=== PATIENT | female | born 1945 | race Caucasian/White ===

== ENCOUNTER 2024-06-08 05:20 | Inpatient (IN) ==
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
[2024-06-08 06:10] LABS: BUN Creatinine Ratio 32.9 (10-20); Calcium 9.6 mg/dl (8.6-10.3); Creatinine Clr Calc Pharmacy 43.3 ml/min; Potassium 3.6 mmol/L (3.5-5.1)
[2024-06-08] MEDS: SODIUM CHLORIDE 0.9% 1,000 ML IV SCH (06:42)
[2024-06-08] MEDS: ALBUTEROL 0.083% NEBU SOLN 3 ML VIAL NEB STA (06:54)
[2024-06-08] MEDS ORDERED: MIDAZOLAM HCL 1 MG/ML 2ML VIAL ONE (06:59)
[2024-06-08] MEDS ORDERED: PROPOFOL IV EMULSION 10 MG/ML 20 ML VIAL IV ONE ×4 (06:59→09:32)
[2024-06-08] MEDS ORDERED: LIDOCAINE 2% 20 MG/ML 5 ML SYR IV ONE (06:59)
[2024-06-08] MEDS ORDERED: fentaNYL citrate PF 100 MCG/2 ML VIAL ONE (06:59)
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
--- NOTE | 2024-06-08 07:29 | History & Physical Bridge Note ---
Date of Service June 08, 2024 History & Physical Bridge Note I have examined the patient, reviewed the History & Physical and in the interval since the performance of the History & Physical I have noted the following changes of clinical significance: no changes noted
[2024-06-08] MEDS: ceFAZolin 2000MG 2,000 MG/15 ML SYR IV SCH ×2 (07:45→16:33)
[2024-06-08] MEDS ORDERED: KETAMINE HCL 10MG/ML SYR ONE (08:17)
[2024-06-08] MEDS ORDERED: HEPARIN SOD (PORCINE) 1000 UNIT/ML ONE (08:34)
[2024-06-08] MEDS: BUPIVACAINE/EPINEPHRINE 0.5% MPF 1:200,000 30 ML VIAL ONE (08:35)
[2024-06-08] MEDS ORDERED: PHENYLEPHRINE 100MCG/ML 5ML SYR ONE (08:50)
[2024-06-08] MEDS ORDERED: ONDANSETRON INJ 2 MG/ML 2 ML VIAL ONE (09:46)
[2024-06-08] MEDS ORDERED: VISIPAQUE IV PRN (09:50)
--- NOTE | 2024-06-08 09:53 | Post Operative Brief Note ---
Immediate Post Op Note Date of Surgery June 08, 2024 Pre & Post Diagnosis Operation Date: 06/08/24 07:30 Pre-Op Diagnosis: Abdominal aortic aneurysm Post-Op Diagnosis: Abdominal aortic aneurysm I identified the patient and participated in the time-out.: Yes Procedure Operation Date: 06/08/24 07:30 Actual Procedures p Percutaneous Endovascular Repair of an Abdominal Aortic Aneurysm, left common iliac extension, right common iliac extension, aortic extension, mechanical closure bilateral femoral arteries(Bilateral) - Juan Michaels MD Surgeon Juan Michaels MD Senior Safety Support Manager DO Smith Estimated Blood Loss 50 Findings Consistent with Post-Op Diagnosis On completion angiogram no evidence of Type 1a/b, type 2, or type 3 endo leak. Groins closed with with manta closure device. No obvious hematoma. Drains Morin Catheter Anesthesia Type MAC Complications none None apparent. Disposition Accompanied Patient To Recovery: No Disposition: Recovery Room
--- NOTE | 2024-06-08 09:59 | Electrocardiogram Report ---
Test Reason : Blood Pressure : */* mmHG Vent. Rate : 74 BPM Atrial Rate : 74 BPM P-R Int : 144 ms QRS Dur : 74 ms QT Int : 382 ms P-R-T Axes : 53 70 66 degrees QTcB Int : 424 ms Poor data quality, interpretation may be adversely affected Normal sinus rhythm Normal ECG No previous ECGs available Confirmed by Alfredo Cordova ([id number]) on 06/08/2024 9:58:39 AM Referred By: Juan Michaels Confirmed By: Alfredo Cordova
[2024-06-08] MEDS ORDERED: fentaNYL citrate PF 100 MCG/2 ML VIAL IV PRN (10:00)
[2024-06-08] MEDS ORDERED: FLUMAZENIL 0.1 MG/1 ML 10 ML VIAL IV PRN (10:00)
[2024-06-08] MEDS ORDERED: LABETALOL HCL IV 5 MG/ML 20ML IV PRN (10:00)
[2024-06-08] MEDS ORDERED: ATROPINE SULFATE 0.1 MG/ML 10ML SYR IV PRN ×2 (10:00→12:08)
[2024-06-08] MEDS ORDERED: NALOXONE HCL 0.4 MG/1 ML VIAL/CARP IV PRN (10:00)
[2024-06-08] MEDS ORDERED: ePHEDrine sulfate 50 MG/ML AMP IV PRN ×2 (10:00→12:08)
--- NOTE | 2024-06-08 10:22 | Operative Report ---
Post Operative Report Pre & Post Diagnosis Operation Date: 06/08/24 07:30 Pre-Op Diagnosis: Abdominal aortic aneurysm Post-Op Diagnosis: Abdominal aortic aneurysm I identified the patient and participated in the time-out.: Yes Procedure Operation Date: 06/08/24 07:30 Actual Procedures p Percutaneous Endovascular Repair of an Abdominal Aortic Aneurysm, left common iliac extension, right common iliac extension, aortic extension, mechanical closure bilateral femoral arteries(Bilateral) - Juan Michaels MD Main body 26x14.5x12 Contra limb 12x10 Ipsilateral limb 12x7 Aortic cuff 26x4.5 Aortic cuff 26x3.3 Surgeon Xenia Senior Data Analyst Terry Estimated Blood Loss 50 Findings Consistent with Post-Op Diagnosis On comletion angiogram no evidence of type 1a/b, 2, or 3 endoleak. Ultimately required two extension pieces for proximal seal. Groins closed with manta closure devices. No obvious hematoma at conclusion of case. Fluids Per anesthesia report Specimens No specimen Drains No drain Anesthesia Type MAC Complications None apparent at conclusion of the case. Indications Known asymptomatic infrarenal AAA. Description of Procedure Fluorotime: 16.6min Rad: 203 mGy Contrast 154 mL PROCEDURE: With the patient supine position under conscious sedation, the abdomen and lower extremities were prepped and draped in a sterile fashion. Bilateral percutaneous common femoral access was obtained under ultrasound guidance. The patient was then heparinized. 8-Zimbabwean sheaths were then placed bilaterally. A stiff megha wire was then placed up the right and left femoral artery. The left 8 fr sheath was exchanged for a 12 fr sheath. The right sheath was squentially dilated with a 12 fr dilator, and then upsized to 18 fr sheath. The main body device (26mm x14.5mm x 12 cm) was inserted via the R groin. Utilizing the L groin a marking pigtail catheter was inserted and an aortogram was performed. We marked the renal arteries aortic bifurcation and bifurcation, common iliac arteries. We then preceded placement of the main trunk and deployed the trunk body just below the take off renal arteries. Once the main trunk was deployed the contralateral gate was cannulated using the pigtail catheter and stiff angle glide. The angled glide catheter was exchanged for a megha wire and a sheath shot was obtained. The take off of the hypogastric was marked. An iliac limb down in to the right common iliac artery was to just above the takeoff of the hypogastric was placed (12mm x 10cm) . Next the remainder of the main body was deployed and a sheath shot on the ipsilateral limb was obtained. The take off of the ipsilateral hypogastric was marked, and an iliac limb was placed (12mm x 7cm). Following completion of the above all arteries were ballooned appropriately. Following ballooning of the proximal, the main body was noted to have slipped and a type1A endoleak was observed. Subsequently, two aortic cuffs were placed, a 26mm x4.5cm and 26mm x 3.3cm. A completion angiogram was done and showed excellent seal without evidence of type 1A/B, 2, or 3 endoleaks. Following completion of the above, manta closure devices were utilized for percutaneous closure. Manual pressure was held on the right groin for 20 minutes. Steristrips were applied to the percutaneous access sites. Sponge and needle counts were reported as correct. The patient tolerated the procedure well the patient was taken to the recovery room in satisfactory condition. Dr. Michaels was present for the entire procedure. I attest to the content of the Intraoperative Record and any orders documented therein. Any exceptions are noted below.
[2024-06-08 10:29] LABS: Hematocrit (blood only) 33.4 % (37.0-47.0); Hemoglobin 10.6 g/dl (12.0-16.0)
[2024-06-08] MEDS: ONDANSETRON INJ 2 MG/ML 2 ML VIAL IV PRN ×2 (10:43→12:48)
[2024-06-08] MEDS: PROMETHAZINE HCL 6.25 MG in SODIUM CHLORIDE 0.9% 50 ML IV PRN (10:50)
[2024-06-08] MEDS: PROMETHAZINE HCL INJ 25 MG/ML 1 ML VIAL ONE ×2 (11:07→11:08)
[2024-06-08] MEDS: SODIUM CHLORIDE 0.9% 50 ML BAG ONE ×2 (11:11→11:12)
[2024-06-08] MEDS: PROMETHAZINE 6.25 MG/50.25 ML BAG IV STA (11:15)
[2024-06-08] MEDS: DROPERIDOL 5 MG/2 ML VIAL IV STA ×2 (11:20→11:35)
[2024-06-08] MEDS: DROPERIDOL 5 MG/2 ML VIAL ONE (11:39)
--- NOTE | 2024-06-08 12:08 | Anesthesiology Progress Note ---
Date of Service June 08, 2024 Anesthesia Post Procedure Vital Signs Vital Signs: Temp Pulse Pulse Resp BP BP Pulse Ox 06/08/24 11:55 36.5 C 79 16 154/55 H 146/70 H 94 06/08/24 11:45 78 18 152/54 H 148/99 H 93 06/08/24 11:35 79 17 155/57 H 145/76 H 92 06/08/24 11:25 80 20 153/57 H 147/68 H 95 06/08/24 11:15 94 H 22 150/56 H 112/75 94 06/08/24 11:05 94 H 18 161/62 H 149/68 H 95 06/08/24 10:55 90 20 163/78 H 95 06/08/24 10:45 87 20 165/84 H 154/48 H 96 06/08/24 10:35 77 16 129/52 L 114/63 95 06/08/24 10:25 79 20 142/53 H 128/67 98 06/08/24 10:15 77 15 149/56 H 129/68 97 06/08/24 10:08 36.0 C L 86 16 148/72 H 99 06/08/24 06:54 68 17 98 06/08/24 05:57 36.8 C 77 18 123/71 134/81 97 O2 Del Method O2 Flow Rate 06/08/24 11:55 Room Air 06/08/24 11:45 Room Air 06/08/24 11:35 Room Air 06/08/24 11:25 Room Air 06/08/24 11:15 Room Air 06/08/24 11:05 Room Air 06/08/24 10:55 Room Air 06/08/24 10:45 Room Air 06/08/24 10:35 Room Air 06/08/24 10:25 Room Air 06/08/24 10:15 Oxymask 7 06/08/24 10:08 Oxymask 7 06/08/24 06:54 Room Air 06/08/24 05:57 Room Air Transfer of Care Handoff Completed per policy Notes Mental Status: alert / awake / arousable Patient Amnestic to Procedure: Yes Nausea / Vomiting: adequately controlled Pain: adequately controlled Airway Patency, RR, SpO2: stable & adequate BP & HR: stable & adequate Hydration State: stable & adequate Anesthetic Complications: no major complications apparent
[2024-06-08] MEDS ORDERED: oxyCODONE/ACETAMINOPHEN 5mg/325mg TAB PO PRN (12:28)
[2024-06-08] MEDS: ALPRAZolam 0.5 MG TABLET PO STA (13:12)
[2024-06-08] MEDS: LACTATED RINGER'S 1,000 ML IV SCH (13:14)
[2024-06-08] MEDS: LIDOCAINE 1% LOCAL 20 ML VIAL ONE (13:52)
[2024-06-08] MEDS: LIDOCAINE 1% LOCAL 20 ML VIAL INJ ONE (13:52)
[2024-06-08] MEDS: ARISTA ABSORBABLE HEMOSTAT 3GM TOP ONE (13:52)
[2024-06-08] MEDS ORDERED: ACETAMINOPHEN 1,000 MG/100 ML VIAL IV PRN (14:21)
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
[2024-06-08] MEDS: LORazepam 2 MG/1 ML VIAL IV PRN (14:55)
[2024-06-08] MEDS: HYDROmorphone INJ 0.5 MG/0.5 ML SYR IV PRN (14:55)
[2024-06-08] MEDS: PROMETHAZINE 6.25 MG/50.25 ML BAG IV ONE (14:55)
--- NOTE | 2024-06-08 15:54 | XRay Report ---
XR chest 1V portable CLINICAL HISTORY: Chest pain. Evaluate for pneumonia. COMPARISON STUDY: No previous studies for comparison. FINDINGS: Lung volumes are normal. No pneumothorax or pleural effusion is present. There is no eviden ce for pulmonary edema. Cardiomediastinal silhouette is normal. A circumscribed 1.1 cm nodular densit y projects over the right midlung. Mild interstitial thickening within the lungs is present. This is greatest within the left lower lobe. IMPRESSION: 1. No consolidation to suggest acute pneumonia. 2. Mild interstitial thickening. This is nonspecific but probably chronic a chronic infectious proce ss is within the differential. 3. Circumscribed 1.1 cm right midlung nodular density. This could be assessed with a nonemergent ches t CT. ACT 112: Positive. There are findings on this exam that require communication between the performing entity and the patient following Patient Test Result Information Act ([place] Act 112) guidelines. Electronically signed by: Bandar Spears M.D. 06/08/2024 3:51 PM
[2024-06-08] MEDS: [UNRECOGNIZED DRUG - REMARK] SCH (16:33)
[2024-06-08] MEDS ORDERED: ALPRAZolam 0.5 MG TABLET PO SCH (21:00)
[2024-06-08] MEDS: SERTRALINE HCL 50 MG TABLET PO SCH (21:00)
[2024-06-09 04:25] LABS: Hematocrit (blood only) 31.2 % (37.0-47.0); Hemoglobin 10.1 g/dl (12.0-16.0); Immature Granulocytes # (auto) 0.03 K/uL (0.01-0.20); Immature Granulocytes % (auto) 0.3 %; Lymphocytes # (auto) 0.47 K/uL (1.20-3.40); Lymphocytes % (auto) 4.4 %; Mean Corpuscular Hgb Conc 32.4 g/dL (32.0-36.0); Mean Corpuscular Volume 86.4 fL (80.0-100.0); Mean Platelet Volume 10.9 fL (9.4-12.4); Monocytes % (auto) 5.6 %; Neutrophils % (auto) 89.7 %; Platelet Count 119 K/uL (130-400); RDW Coefficient of Variation 14.1 % (11.5-14.5); RDW Standard Deviation 44.2 fL (36.4-46.3); Red Blood Count 3.61 M/uL (4.20-5.40)
[2024-06-09 04:37] LABS: BUN Creatinine Ratio 18.3 (10-20); Calcium 8.5 mg/dl (8.6-10.3); Creatinine Clr Calc Pharmacy 46.4 ml/min; Potassium 3.5 mmol/L (3.5-5.1)
[2024-06-09] MEDS ORDERED: ceFAZolin 2000MG 2,000 MG/15 ML SYR IV SCH (06:00)
[2024-06-09 10:19] VITALS: O2SAT 95
[2024-06-09 10:38] VITALS: TEMP 99.1
[2024-06-09 11:41] VITALS: BP 151/65; PULSE 89; RESP 13
--- NOTE | 2024-06-09 12:41 | Surgery Progress Note ---
Date of Service June 09, 2024 Assessment & Plan (1) H/O endovascular stent graft for abdominal aortic aneurysm: Plan: Patient POD 1 of a PEVAR. Uneventful post op course. Will d/c today. Admission and Anticipated Discharge Date Admission Date: June 08, 2024 Subjective Patient without complaints. Up in chair. Physical Exam Constitutional: WD/WN, vitals as above Respiratory: normal respiratory effort; no respiratory distress Cardiovascular: Rate/Rhythm: regular rate and regular rhythm Vessels: femoral pulses present Extremities: normal capillary refill Gastrointestinal (Abdomen): Inspection/Auscultation: abdomen normal to inspection Percussion/Palpation: abdomen soft; abdomen nontender Skin: + incision (puncture sites without hemat omas) Neurologic: CN's II-XI intact bilaterally and moves all extremities Psychiatric: A+Ox3, euthymic affect Results & Data Vital Signs (Past 12 Hours) Vital Signs Temp Pulse Pulse Resp BP BP BP 06/09/24 11:36 89 13 06/09/24 11:06 80 17 06/09/24 11:00 151/65 H 06/09/24 11:00 151/65 H 06/09/24 10:54 78 22 06/09/24 10:38 37.3 C 06/09/24 10:34 37.3 C 87 24 158/57 H 154/84 H 06/09/24 10:09 80 24 06/09/24 10:00 126/61 06/09/24 09:23 151/65 H 06/09/24 09:21 86 30 H 06/09/24 08:00 82 25 H 132/76 06/09/24 08:00 06/09/24 08:00 37.6 C H 06/09/24 08:00 80 144/51 H 06/09/24 08:00 79 06/09/24 07:06 81 20 06/09/24 07:00 153/66 H 06/09/24 06:00 80 21 144/51 H 06/09/24 04:00 37 C 87 22 154/84 H 06/09/24 03:00 86 24 159/55 H 06/09/24 01:00 86 24 158/58 H Pulse Ox O2 Del Method 06/09/24 11:36 06/09/24 11:06 06/09/24 11:00 06/09/24 11:00 06/09/24 10:54 06/09/24 10:38 06/09/24 10:34 95 06/09/24 10:09 95 06/09/24 10:00 06/09/24 09:23 06/09/24 09:21 99 06/09/24 08:00 98 06/09/24 08:00 Room Air 06/09/24 08:00 06/09/24 08:00 06/09/24 08:00 06/09/24 07:06 97 Room Air 06/09/24 07:00 06/09/24 06:00 98 Room Air 06/09/24 04:00 97 Room Air 06/09/24 03:00 95 Room Air 06/09/24 01:00 94 Room Air
--- NOTE | 2024-06-09 12:43 | Discharge Summary ---
Date of Service June 09, 2024 Admission HPI Per Admitting Provider Name: FREDRICK MERINO Patient Number: [id number] : 1945 Date of Service: 04/28/2024 Chief Complaint: _Follow-up after CT abdomen pelvis HPI: _Ms. Fam is an elderly female who presents to Dr. Michaels's vascular surgery clinic today for a follow-up visit after undergoing a CTA abdomen/pelvis to evaluate her abdominal aortic aneurysm. Recent surveillance ultrasound performed in our office had indicated that the diameter of her AAA had reached 5 cm. Patient denies any new complaints or concerns at this time. CTA abdomen pelvis done at [facility] on 04/18/2024 demonstrates an infrarenal fusiform abdominal aortic aneurysm measuring 5 cm in diameter. Current Home Meds: (Last Updated 03/24 11:41) ALPRAZolam (ALPRAZolam 0.5 mg oral tablet) 0.5 mg PO Daily PRN: as needed for anxiety fenofibrate (fenofibrate micronized 200 mg oral capsule) 200 mg PO Daily pantoprazole (Protonix 40 mg oral delayed release tablet) 40 mg PO Daily sertraline (sertraline 50 mg oral tablet) 50 mg PO Daily Allergies and Sensitivities: No Known Medication Allergies Past Medical History: Problems: Tobacco user AAA (abdominal aortic aneurysm) OBJECTIVE Vitals: Last Updated 04/28/24 14:21 Date Temp BP Location Pulse RR SpO2 Pain 04/28/24 0 04/28/24 118/58 74 96 05/11/23 116/58 Left Arm 79 97 Vital Signs are the last 3 documented. No Orthostatic Data Available Height and Weight: Last Updated 05/11/23 16:18 Date BMI Wt(kg) Wt(lb) Method Ht(cm) (ft-in) Method 05/11/23 49.5 109 Standing Scale Heights and Weights are the last 3 documented. Physical Exam Constitutional in general patient is a thin but healthy-appearing well-nourished well-developed elderly female no distress. She is alert and oriented with any focal deficits. Her heart is regular, lungs are decreased throughout but clear. Her abdomen is soft nontender with normoactive bowel sounds in all 4 quadrants. I am able to palpate her pulsatile mass. Her femoral pulses are +3. Lower extremities the pulses are +2. ASSESSMENT: _ PLAN: _ 1 ) _AAA Patient does have an infrarenal fusiform abdominal aortic aneurysm, now measuring 5 cm in its largest diameter. CTA images were discussed with Dr. Michaels who reviewed them at length. He recommends that patient undergo an endovascular repair of her AAA. The procedure, benefits, and alternatives were discussed with the patient. The risks of the surgery, including but not limited to bleeding, infection, improper placement of the graft or inability to insert the graft leading to need for open surgical repair, heart attack, , blood clots, vessel damage, radiation exposure, limb loss, kidney failure, were discussed with the patient by myself at Dr. Michaels's request. Patient expresses understanding and agreement to proceed. We will have the patient undergo stress echocardiogram prior to her procedure. We will also have her evaluated by her primary care physician due to findings of inflammatory pneumonitis on her CTA. Patient is relatively asymptomatic at this time. Her daughter was also present with her today. They are advised to call here if they have any further questions. This will be scheduled in the near future. Thank you for letting us participate in the care of this patient. I have personally spent_35__ minutes performing uqph-fk-szyn and drb-owwk-qt-face activities on this date of service.Time does not include separately reported services. Activities Include: x__ review of the medical record x__ obtaining a history x__ physical exam/evaluation __ review labs _x_ review radiology reports _x_ counseling/educating patient/family/caregiver __ discussion/referral to other healthcare professional _x_ documenting care in the medical record __ independent interpretation of results x_ communication of results to patient/family/caregiver _x_ coordination of care Signature Line Electronic Signature on File CC: KIERA Maria [address] [id number] * Electronically Reviewed/Signed by: Karina Becker PA-C Author Signature Dt/Tm:04/28/2024 03:29 PM [facility] [place]-[address], [address] [place]. [id number] LM Result Type: HVI Outpt Note Date of Service: April 28, 2024 15:15 EDT Authorization Status: Final Author or Import Date: TONIA Becker, Karina on April 28, 2024 15:29 EDT Verified By: TONIA Becker Lynn on April 28, 2024 15:29 EDT Encounter info: [id number], [facility], Clinic, 04/28/2024 - 04/28/2024 Admission Exam Per Admitting Provider Constitutional in general patient is a thin but healthy-appearing well-nourished well-developed elderly female no distress. She is alert and oriented with any focal deficits. Her heart is regular, lungs are decreased throughout but clear. Her abdomen is soft nontender with normoactive bowel sounds in all 4 quadrants. I am able to palpate her pulsatile mass. Her femoral pulses are +3. Lower extremities the pulses are +2. Principal Diagnosis Abdominal aortic aneurysm Discharge Exam Constitutional WD/WN, vitals as above Respiratory normal respiratory effort; no respiratory distress Cardiovascular Rate/Rhythm: regular rate and regular rhythm Vessels: femoral pulses present Extremities: normal capillary refill Gastrointestinal (Abdomen) Inspection/Auscultation: abdomen normal to inspection Percussion/Palpation: abdomen soft; abdomen nontender Skin + incision (puncture sites without hematomas) Neurologic CN's II-XI intact bilaterally and moves all extremities Psychiatric A+Ox3, euthymic affect Discharge Data Allergies Allergy/AdvReac Type Severity Reaction Status Date / Time No Known Allergies Allergy Verified 06/08/24 05:46 Consultations 06/08/24 12:28 Consult Gas Operator Routine Procedures Performed Operation Date: 06/08/24 07:30 Actual Procedures p Percutaneous Endovascular Repair of an Abdominal Aortic Aneurysm, left common iliac extension, right common iliac extension, aortic extension, mechanical closure bilateral femoral arteries(Bilateral) - Juan Michaels MD Ordered Studies 06/08/24 07:14 EV AAA repair aorta only Routine Hospital Course (1) H/O endovascular stent graft for abdominal aortic aneurysm: Patient POD 1 of a PEVAR. Uneventful post op course. Will d/c today. Total Time Total Time Spent Total Time Spent (In Minutes): x Discharge Plan Discharge Items Patient Disposition: Home - Self-Care Reason For Visit: AAA Discharge Diagnosis: abdominal aortic aneurysm Activity: Per Instructions section Non-emergency contact: Surgeon Call non-emergency contact if: your temperature is above 101.5, your wound has increased redness, your wound has increased drainage and your wound pain has increased Follow-up/Referrals: Cathryn Ha CRNP [Primary Care Provider] - Diet: Heart Healthy Add Attending Provider Instructions: SPECIAL CARE INSTRUCTIONS: Diet: * You may return to previous diet. Medications: * Continue to take your medications as directed. Incision/Puncture Site Care: * You will have an incision or puncture in each of your groins. Liquid glue will be used to seal your incisions/puncture site. This will lift off as the incisions/puncture sites heal. * If Liquid glue is not used, there will be small dressings covering your incisions. After you get home, you may remove the dressings and shower - allowing the warm soapy water to run over it. * Be sure to dry the sites well and keep them dry. * DO NOT SOAK IN A TUB/POOL/etc. UNTIL ALL SURGICAL SITES ARE HEALED. DO NOT REMOVE THE GLUE UNTIL THE INCISIONS HEAL. Restrictions: * Limit yourself to box sealing inspector activity for the first week. * You may walk and go up and down steps. * Avoid excessive bending or movement at the level of the incisions or punctures. Risks and Possible Complications: * Infection/Drainage/Bleeding - Drainage or bleeding from the incisions/puncture site should be minimal. If you have excessive bleeding or drainage, call our office ([phone]) right away. * Pain/Numbness - You may experience some mild pain or soreness at your incision sites. You may also have some numbness around the incisions or into the insides of your thighs. Bruising is normal and should resolve within 2 weeks. * Changes in Appetite or Bowel Habits - Mostly related to anesthesia and pain medication, some patients have reported decreased appetite and/or problems with constipation. These symptoms usually improve over a few weeks. Remembering to take an hbxr-mwj-mkaqcme stool softener, as directed, will help you to avoid constipation. Call our office and seek emergent treatment if you develop: * Fever or chills * Have a temperature greater than 101 degrees F * Any redness or purulent drainage from your incisions or punctures * Severe abdominal, chest or back pain SKIN IRRITATION: * You may experience some redness and/or swelling in the area where radiation was administered. If any skin irritation occurs, please contact your family physician. You will be receiving a call from the Vascular Surgery Nurse after you are discharged. FOLLOW UP VISIT: It is important for you to keep your follow up appointments with your medical provider. Keep any scheduled doctor appointments. Call [phone] to schedule a follow up appointment if one not already scheduled. Pending Studies at Discharge: No Stand-Alone Forms: [facility], Smoking Cessation Medications and DC Order Prescriptions: Continued fenofibrate micronized 200 mg Capsule 200 mg PO PM alprazolam [Xanax] 0.5 mg Tablet 0.5 mg PO BID sertraline [Zoloft] 50 mg Tablet 50 mg PO HS Discharge Orders: Discharge Order (Routine); Ordered 06/09/24 Ordered By: Juan Michaels Admission Data Admit Date/Time: 06/08/24 07:29 Attending Provider: Juan Michaels Admit Provider: Juan Michaels Primary Care Provider: Cathryn Ha Other Providers: Vladimir Knox; Matheus Morrell; Farooq Lancaster; Asad Maddox; Denise Odom Muqueet; Marv Uriarte; Stephie Man; Gina Rodriguez; Prem Julian; Mike Orantes; Gledny Banks Other Interventions: Discharge Summary Assessment (RN) Last Done: 06/09/24 10:34
--- OUTSIDE RECORDS SUMMARY | 2024-06-10 10:52 | External Medical Summary | Continuity of Care Document ---
Author Name Unknown Organization [facility] [address] [facility] Address [address] [place], [place] [id number] Care Team Providers Care Spirits Model Name Role Phone Robbie Dietz Primary Care Physician [phone] Encounter [facility] [id number] Date(s): 04/28/24 - 04/28/24 [facility] [address], [address] [place] [address] [phone] Encounter Diagnosis AAA (abdominal aortic aneurysm)(Discharge Diagnosis) - 04/28/24 Discharge Disposition: Home or Self Care Attending Physician: TONIA Becker Lynn Referring Physician: TONIA Dietz Tyler Dwane Allergies, Adverse Reactions, Alerts No Known Medication Allergies Assessment and Plan Extracted from: Title:Clinical Document Author:TONIA Becker Lynn Date:04/28/24 [facility] OUTPATIENT NOTE Name: FREDRICK MERINO Patient Number: [id number] : 1945 Date of Service: 04/28/2024 Chief Complaint: _Follow-up after CT abdomen pelvis HPI: _Ms. Fam is an elderly female who presents to Dr. Michaels's vascular surgery clinic today for a follow-up visit after undergoing a CTA abdomen/pelvis to evaluate her abdominal aortic aneurysm. Recent surveillance ultrasound performed in our office had indicated that the diameter of her AAA had reached 5 cm. Patient denies any new complaints or concerns at this time. CTA abdomen pelvis done at [facility] on 04/18/2024 demonstrates an infrarenal fusiform abdominal aortic aneurysm measuring 5 cm in diameter. Current Home Meds: (Last Updated 03/24 11:41) ALPRAZolam (ALPRAZolam 0.5 mg oral tablet) 0.5 mg PO Daily PRN: as needed for anxiety fenofibrate (fenofibrate micronized 200 mg oral capsule) 200 mg PO Daily pantoprazole (Protonix 40 mg oral delayed release tablet) 40 mg PO Daily sertraline (sertraline 50 mg oral tablet) 50 mg PO Daily Allergies and Sensitivities: No Known Medication Allergies Past Medical History: Problems: Tobacco user AAA (abdominal aortic aneurysm) OBJECTIVE Vitals: Last Updated 04/28/24 14:21 Date Temp BP Location Pulse RR SpO2 Pain 04/28/24 0 04/28/24 118/58 74 96 05/11/23 116/58 Left Arm 79 97 Vital Signs are the last 3 documented. No Orthostatic Data Available Height and Weight: Last Updated 05/11/23 16:18 Date BMI Wt(kg) Wt(lb) Method Ht(cm) (ft-in) Method 05/11/23 49.5 109 Standing Scale Heights and Weights are the last 3 documented. Physical Exam Constitutional in general patient is a thin but healthy-appearing well-nourished well-developed elderly female no distress. She is alert and oriented with any focal deficits. Her heart is regular, lungs are decreased throughout but clear. Her abdomen is soft nontender with normoactive bowel sounds in all 4 quadrants. I am able to palpate her pulsatile mass. Her femoral pulses are +3. Lower extremities the pulses are +2. ASSESSMENT: _ PLAN: _ 1 ) _AAA Patient does have an infrarenal fusiform abdominal aortic aneurysm, now measuring 5 cm in its largest diameter. CTA images were discussed with Dr. Michaels who reviewed them at length. He recommends that patient undergo an endovascular repair of her AAA. The procedure, benefits, and alternatives were discussed with the patient. The risks of the surgery, including but not limited to bleeding, infection, improper placement of the graft or inability to insert the graft leading to need for open surgical repair, heart attack, , blood clots, vessel damage, radiation exposure, limb loss, kidney failure, were discussed with the patient by myself at Dr. Michaels's request. Patient expresses understanding and agreement to proceed. We will have the patient undergo stress echocardiogram prior to her procedure. We will also have her evaluated by her primary care physician due to findings of inflammatory pneumonitis on her CTA. Patient is relatively asymptomatic at this time. Her daughter was also present with her today. They are advised to call here if they have any further questions. This will be scheduled in the near future. Thank you for letting us participate in the care of this patient. I have personally spent_35__ minutes performing [id number] and [id number]-face activities on this date of service.Time does not include separately reported services. Activities Include: x__ review of the medical record x__ obtaining a history x__ physical exam/evaluation __ review labs _x_ review radiology reports _x_ counseling/educating patient/family/caregiver __ discussion/referral to other healthcare professional _x_ documenting care in the medical record __ independent interpretation of results x_ communication of results to patient/family/caregiver _x_ coordination of care Medications ALPRAZolam 0.5 mg oral tablet Start: 05/11/23 3:47:00 PM EST, 1 tab, PO, Daily, PRN: as needed for anxiety Start Date: 05/11/23 Status: Ordered fenofibrate micronized 200 mg oral capsule Start: 05/11/23 3:47:00 PM EST, 1 cap, PO, Daily Start Date: 05/11/23 Status: Ordered Protonix 40 mg oral delayed release tablet Start: 05/11/23 3:47:00 PM EST, 1 tab, PO, Daily Start Date: 05/11/23 Status: Ordered sertraline 50 mg oral tablet Start: 05/11/23 3:47:00 PM EST, 1 tab, PO, Daily Start Date: 05/11/23 Status: Ordered Mental Status 04/28/24 Barriers to Learning one year None evide nt Mandatory Health Literacy Documentation Yes Health Literacy Communication Barriers N ever Primary Language Irish Problem List Condition Confirmation Course Effective Dates Status Health St atus Informant AAA (abdominal aortic aneurysm) Confirmed Active Tobacco user Confirmed Active Diagnosis Diagnosis Type Effective Dates Health Status Cl inical Service Informant AAA (abdominal aortic aneurysm) Discharge Diagnosis 04/28/24 Vital Signs Most recent to oldest [Reference Range]: 1 Heart Rate 74 bpm (04/28/24 2:18 PM) Blood Pressure 118/58mmHg (04/28/24 2:18 PM) Cuff Pulse Pressure 60 mmHg (04/28/24 2:18 PM) Social History Social History Type Response Smoking Status Current every day he casa smoker Sex Female Sex Representation Female (finding) [facility] Outpt Note * Minarchick, PA-C, Karina: PERFORM Event Display: [facility] Outpt Note Authored Date: [id number] [facility] OUTPATIENT NOTE Name: FREDRICK MERINO Patient Number: [id number] : 1945 Date of Service: 04/28/2024 Chief Complaint: _Follow-up after CT abdomen pelvis HPI: _Ms. Fam is an elderly female who presents to Dr. Michaels's vascular surgery clinic todayfor a follow-up visit after undergoing a CTA abdomen/pelvis to evaluate her abdominal aortic aneurysm. Recent surveillance ultrasound performed in our office had indicated that the diameter of her AAA had reached 5 cm. Patient denies any new complaints or concerns at this time. CTA abdomen pelvis done at [facility] on 04/18/2024 demonstrates an infrarenal fusiform abdominal aortic aneurysm measuring 5 cm in diameter. Current Home Meds: (Last Updated 03/24 11:41) ALPRAZolam (ALPRAZolam 0.5 mg oral tablet) 0.5 mg PO Daily PRN: as needed for anxiety fenofibrate (fenofibrate micronized 200 mg oral capsule) 200 mg PO Daily pantoprazole (Protonix 40 mg oral delayed release tablet) 40 mg PO Daily sertraline (sertraline 50 mg oral tablet) 50 mg PO Daily Allergies and Sensitivities: No Known Medication Allergies Past Medical History: Problems: Tobacco user AAA (abdominal aortic aneurysm) OBJECTIVE Vitals: Last Updated 04/28/24 14:21 Date Temp BP Location Pulse RR SpO2 Pain 04/28/24 0 04/28/24 118/58 74 96 05/11/23 116/58 Left Arm 79 97 Vital Signs are the last 3 documented. No Orthostatic Data Available Height and Weight: Last Updated 05/11/23 16:18 Date BMI Wt(kg) Wt(lb) Method Ht(cm) (ft-in) Method 05/11/23 49.5 109 Standing Scale Heights and Weights are the last 3 documented. Physical Exam Constitutional in general patient is a thin but healthy-appearing well-nourished well-developed elderly female no distress. She is alert and oriented with any focal deficits. Her heart is regular, lungs are decreased throughout but clear. Her abdomen is soft nontender with normoactive bowel sounds in all 4 quadrants. I am able to palpate her pulsatile mass. Her femoral pulses are +3. Lower extremities the pulses are +2. ASSESSMENT: _ PLAN: _ 1 ) _AAA Patient does have an infrarenal fusiform abdominal aortic aneurysm, now measuring 5 cm in its largest diameter. CTA images were discussed with Dr. Michaels who reviewed them at length. He recommends that patient undergo an endovascular repair of her AAA. The procedure, benefits, and alternatives were discussed with the patient. The risks of the surgery, including but not limited to bleeding, infection, improper placement of the graft or inability to insert the graft leading to need for open surgical repair, heart attack, , blood clots, vessel damage, radiation exposure, limb loss, kidney failure, were discussed with the patient by myself at Dr. Michaels's request. Patient expresses understanding and agreement to proceed. We will have the patient undergo stress echocardiogram prior to her procedure. We will also have her evaluated by her primary care physician due to findings of inflammatory pneumonitis on her CTA. Patient is relatively asymptomatic at this time. Her daughter was also present with her today. They are advised to call here if they have any further questions. This will be scheduled in the near future. Thank you for letting us participate in the care of this patient. I have personally spent_35__ minutes performing [id number] and gyk-vhcl-qm-face activities on this date of service.Time does not include separately reported services. Activities Include: x__ review of the medical record x__ obtaining a history x__ physical exam/evaluation __ review labs _x_ review radiology reports _x_ counseling/educating patient/family/caregiver __ discussion/referral to other healthcare professional _x_ documenting care in the medical record __ independent interpretation of results x_ communication of results to patient/family/caregiver _x_ coordination of care Electronic Signature on File CC: KIERA [facility] [address] [facility] [id number] * Electronically Reviewed/Signed by: Karina Becker PA-C Author Signature Dt/Tm:04/28/2024 03:29 PM [facility] [place]-[address], [address] [place] [address] [place] Patient Care team information Care Team Personnel Name: TONIA Dietz, Robbie Mac Position: Referring Member Role: Primary Care Provider Address: [facility] [address] [place] [address] Name: TONIA Becker Lynn Position: Physician Quarantine Inspector Exempt - Vasc Surg Member Role: Lifetime Relationship Address: [address] [place] [id number]
== END 2024-06-09 14:08 | disposition home or self-care (01) | DRG 269 ==
LOC: ASU 05:20 → 1E 07:29